=== PATIENT | male | born 1965 | race African-American/Black ===

== ENCOUNTER 2016-06-09 14:23 | Inpatient (IN) | payer MEDICARE, MEDICAID ==
[~2016-06-09] VITALS: Ht 165.1 cm; Wt 111.3 kg
[~2016-06-09 14:23] MED LIST: ALBUTEROL2 PUFFS/17 IN; AMOXIL500 M1 PO; ASPIRIN 81MG TA81 MG PO; BACTRIM DS 8001 TA1 PO; BACTROBAN2% TP; CARVEDILOL 25MG25 MG PO; CIPRO 500MG TA500 MG PO; CIPROFLOXACIN750 MG PO; COMBIVENT INH14.7 GM IN; DIABETA5 MG PO; DOXYCYCLINE HY100 M4 PO; FENOFIBRATE MI134 MG PO; FLEXERIL10 M1 PO; FLEXERIL10 MG PO; FLOVENT 11110 MCG/PU IH; GABAPENTIN 600600 MG PO; HUMALOG MIX 75/10 ML SC; HYDROCODONE BIT1 T39 PO; IPRATROPIUM BROM3 M1 IN; KEFLEX 500MG.500 MG PO; KEFLEX500 M1 PO; KLOR-CON M2020 MEQ PO; LASIX 80MG. TAB80 MG PO; LIPITOR80 MG PO; LISINOPRIL10 MG PO; LORAZEPAM0.5 MG/TAB PO; LORTAB 5/5001 TAB PO; MEDROL 4MG. DOSE4 MG PO; METOPROLOL50 MG PO; MINOCYCLINE 10100 MG PO; MIRALAX(PO17 GM/1 PA PO; NICODERM C21 MG/24 H TD; NICOTINE PATCH;21 MG TD; NORCO 325 MG-51 TAB PO; NORFLEX100 MG PO; NOVOLIN R100 U/ML SC; PLAVIX 75MG TAB75 MG PO; PRAVACHOL40 MG PO; PREDNICOT10 MG PO; PREDNISONE 5MG.5 MG PO; ULTRAM50 MG PO
[2016-06-09 15:48] VITALS: BP 111/83
[2016-06-09] MEDS ORDERED: AMLODIPINE10 M2 PO (16:12)
[2016-06-09] MEDS ORDERED: ASPIRIN81 M3 PO (16:13)
[2016-06-09] MEDS ORDERED: K-DUR 2020 MEQ PO (16:14)
[2016-06-09 19:52] VITALS: BP 129/72
[2016-06-09 20:25] VITALS: BP 129/72
[2016-06-10 03:51] VITALS: BP 101/62
[2016-06-10 06:26] LABS: HEMOGLOBIN 12.8 g/dL (14.1-18.0); LYMPH # 2.7 K/mm3 (0.7-4.5); LYMPH % 50.7 % (10-50)
--- NOTE | 2016-06-10 07:19 | PHARMACY CLINIC NOTE ---
Patient Demographics Patient Demographics Admission date: 06/09/16 Date: 06/10/16 Time: 07 Allergies Coded Allergies: No Known Allergies (06/08/16) HEIGHT- FT: 5 IN: 5.00 K.272 VTE General Information Labs: Laboratory Tests 06/10 0605 Hematology Hgb (14.1 - 18.0 g/dL) 12.8 L Hct (42.0 - 52.0 %) 38.8 L Plt Count (142 - 424 K/mm3) 205 Disclaimer The following section includes nursing documentation that has been pulled in for pharmacy review. Patient's VTE score: 2 Patient's VTE Risk: VERY LOW RISK Clinical trial participant? No VTE prophylaxis NQF [id number] VTE prophylaxis ordered? Yes Type of prophylaxis/treatment: KARLA at 0719
--- NOTE | 2016-06-10 07:19 | PHARMACY CLINIC NOTE ---
Patient Demographics Patient Demographics Admission date: 06/09/16 Date: 06/10/16 Time: 07 Allergies Coded Allergies: No Known Allergies (06/08/16) HEIGHT- FT: 5 IN: 5.00 K.272 VTE General Information Labs: Laboratory Tests 06/10 0605 Hematology Hgb (14.1 - 18.0 g/dL) 12.8 L Hct (42.0 - 52.0 %) 38.8 L Plt Count (142 - 424 K/mm3) 205 Disclaimer The following section includes nursing documentation that has been pulled in for pharmacy review. Patient's VTE score: 2 Patient's VTE Risk: VERY LOW RISK Clinical trial participant? No VTE prophylaxis NQF [id number] VTE prophylaxis ordered? Yes Type of prophylaxis/treatment: KARLA at 0719
[2016-06-10 07:46] VITALS: BP 133/83
--- NOTE | 2016-06-10 08:33 | ACUTE CARE PROGRESS NOTE (QUA) ---
Progress Notes Subjective Date 06/10/16 Time 0829 Note doing ok Patient/family reports: feeling better Nursing reports: no complaints Objective Findings Last VS-Temp:98.5 B/P:133/83 Pulse:63 Resp:20 SaO2:95 ROOM AIR Last weight lbs:245 oz:5 K.272 Method:Bed Scales Exam General appearance: alert Eyes: PERRLA ENT: dry mucous membranes Neck: no JVD Cardiovascular: regular rate & rhythm Respiratory: no respiratory distress ABD: soft Genitourinary: no hematuria Extremities: changes rt foor 4th toe Musculoskeletal: equal muscle strength Skin: infection rt foot Neuro: alert, dec sensation rt lower ext Reviewed: allergies, medications, vital signs, lab results Assessment/Plan Problem List 1. Cellulitis and abscess of foot 2. Chronic pain Status: Chronic 3. Tobacco use Status: Chronic 4. Diabetes mellitus Status: Chronic 5. Renal insufficiency Status: Chronic 6. Acute osteomyelitis of toe Status: Acute Patient condition Stable Plan: continue current care This inpt stay is expected to cross 2 MNs from start of care Yes Comments: awaiting consult on iv abx as he failed op treatment at 0895
[2016-06-10 08:52] VITALS: BP 133/83
[2016-06-10 09:01] LABS: NEUTROPHILS 33 % (42-76)
--- NOTE | 2016-06-10 10:48 | CONSULT NOTE ---
Pharmacokinetic Consult Date of consult: 06/10/16 Time of consult: 1045 Referring provider: DR. SHANKAR Reason for consult: VANCOMYCIN DOSING Allergies: Coded Allergies: No Known Allergies (06/08/16) Home Medications: Active Scripts Orphenadrine Citrate (Norflex) 100 MG PO BIDP PRN pain #20 TER Prov: 07/31/14 MUPIROCIN 2% (Bactroban Oint) 0 GM TP BID #1 TUBE Prov: 12/30/15 CEPHALEXIN (Keflex 500MG Capsule) 500 MG PO Q8H #30 CAP Prov: 06/08/16 Minocycline Hcl (Minocycline 100MG. Capsule) 100 MG PO BID #20 CAP Prov: 06/08/16 HYDROCODONE/ACETAMINOPHEN (Dilliner 5-325 Tablet) 1 TAB PO Q6HP PRN pain #7 TAB Prov: 06/08/16 POLYETHYLENE GLYCOL (Miralax) 17 GM PO DAILY PRN constipation #20 MAHESH Prov: 11/19/15 Lorazepam (Lorazepam 0.5MG) 0.5 MG PO BIDP PRN ANXIETY #60 TAB Ref 2 Prov: 03/24/13 Atorvastatin Calcium (Atorvastatin) 80 MG PO QHS #30 TABLET Ref 2 Prov: 03/24/13 Lisinopril 10 MG PO DAILY #30 TAB Ref 2 Prov: 03/24/13 Gabapentin (Gabapentin 600MG) 600 MG PO TID #90 30 Days Prov: 03/24/13 Furosemide (Lasix 80MG) 80 MG PO BIDP #60 Prov: 03/24/13 Carvedilol (Carvedilol 25MG) 25 MG PO BID #60 TAB Ref 2 Prov: 03/24/13 ALBUTEROL-IPRATROPIUM (Iprat-Albut 0.5-3(2.5) MG/3 Ml) 3 ML IN Q6H6 #120 ML Ref 2 Prov: 03/24/13 FLUTICASONE PROP (Flovent 110) 1 GM IH Q12H6 #1 INH Ref 2 Prov: 03/24/13 Reported Medications Amlodipine Besylate (Amlodipine) 10 MG PO DAILY Aspirin (Aspirin EC) 81 MG PO DAILY Potassium Chloride (K-Dur) 20 MEQ PO DAILY Insulin Aspart, Recombinant (Novolog VIAL) 44 UNITS SC BID CLOPIDOGREL BISULFATE (PLAVIX) 75 MG PO DAILY FENOFIBRATE (Fenofibrate) 134 MG PO DAILY Height (feet): 5 Height (inches): 5.00 Medical History: CAD? Yes Angina: Yes CT: Yes Hypertension? Yes Hyperlipidemia? Yes CHF? Yes DVT? No PE? No COPD? Yes Asthma? Yes Anemia? No GERD? No Gastric ulcers? No GI Bleed? No Hernia? No Thyroid Problems? No Hypothyroidism? No CVA? No Seizures? No Diabetes? Yes Insulin Dependent: Yes Insulin Pump: No Home FSBS? Yes Renal Insuffiency? No UTI? No Stones? No BPH? No GB Disease: Yes Nephritic Syndrome? No Asplenia? No Hepatitis? No Sickle Cell Disease? No Arthritis? Yes Migraines? No Cataracts? No Glaucoma? No MRSA? No HIV? No TB? No Anxiety? No Depression? No Cancer? No More? No Labs: Laboratory Tests 06/10/16 0608: POC Glucose 163 H 06/10/16 0605: WBC 5.4, RBC 4.12 L, Hgb 12.8 L, Hct 38.8 L, MCV 94.2, RDW 14.8, Plt Count 205, MPV 8.0, Gran % 39.8, Gran # 2.2, Total Counted 100, Lymphocytes % 50.7 H, Monocytes % 5.2, Eosinophils % 3.8, Basophils % 0.5, Neutrophils 33 L, Band Neutrophils 1, Lymphocytes (Manual) 58 H, Lymphocytes # 2.7, Monocytes (Manual) 5, Monocytes # 0.3, Eosinophils # 0.2, Eosinophils # (Manual) 3, Basophils # 0.0 , Platelet Estimate NORMAL, PUBS MCHC 33.0, MCH 31.1 06/09/162022: POC Glucose 193 H 06/09/16 1739: POC Glucose 139 H 06/09/16 1700: Sodium 139, Potassium 3.7, Chloride 105, Carbon Dioxide 29, BUN 22 H, Creatinine 1.4 H, Estimated Creat Clear 99, Estimated GFR (MDRD) 54, Glucose 113 H, Calcium 9.1, Total Bilirubin 0.3, AST 16, ALT 31, Alkaline Phosphatase 62, Total Protein 7.0, Albumin 3.5, Globulin 3.5 H, Albumin/Globulin Ratio 1.0 L Problem List: 1. Diabetic foot ulcer associated with diabetes mellitus due to underlying condition 2. Cellulitis and abscess of foot Plan: BASED ON PATIENT FACTORS, RECOMMEND PATIENT CONTINUE WITH VANCOMYCIN 2 GM Q18H AT THIS TIME. PHARMACY WILL FOLLOW DAILY AND ADJUST APPROPRIATE. JOSE L DIETZ, PHARMD at [phone]
[2016-06-10] MEDS ORDERED: FUROSEMIDE80 MG PO (11:30)
[2016-06-10] MEDS ORDERED: NEURONTIN800 MG PO (11:31)
[2016-06-10] MEDS ORDERED: NORCO 325 MG-51 TAB PO (11:33)
[2016-06-10] MEDS ORDERED: IPRATROPIUM BROM3 M1 IH (11:48)
[2016-06-10] MEDS ORDERED: INCRUSE EL62.5 MCG/A IH (11:51)
[2016-06-10] MEDS ORDERED: BREO ELLIPTA 21 EACH IH (11:51)
--- NOTE | 2016-06-10 12:11 | CONSULT NOTE ---
Consultation findings: Referring physician: Dr. Albright Date of examination: 06/10/16 Time of examination: 1100 Exam findings: Patient is a pleasant 50-year-old -Domin[place] male admitted yesterday for suspected osteomyelitis of his LEFT fourth toe. Prior to that he was seen in the ER with a few days history of pain and discoloration of his LEFT fourth toe. He has history of multiple medical problems including diabetes mellitus, peripheral arterial disease, peripheral neuropathy, coronary artery disease, hypertension, chronic obstructive pulmonary disease, congestive heart failure, history of multiple toe amputations of his LEFT foot for osteomyelitis. He had LEFT third toe amputation in July 2013, LEFT second toe amputation in February 2014 and LEFT big toe amputation in April 2015. He says he has been having aching pain in his LEFT fourth toe for the last 3 or 4 days. He also reports some discoloration of the toe. Also he is a chronic smoker and smokes 1 pack of cigarettes a day. There is no history of any fever, chills or rigors. He feels well within himself. His appetite is normal. There is no history of any discharge or ulceration. Examination: Reviewed the hospital notes, labs, vitals, medication and discussed with the nursing staff. General appearance: alert, in no acute distress ENT: dry mucous membranes Neck: no JVD Cardiovascular: regular rate & rhythm Respiratory: no respiratory distress ABD: soft, nontender Neuro: alert, decreased sensation over both feet On examination of the LEFT foot, the first, second and third toes are absent surgically. There is increased pigmentation over the fourth toe and also over the dorsum of the forefoot. There is no erythema, ulceration or discharge. He has good range of motion at ankle, subtalar joint in the toes.~He is tender over the forefoot especially over the distal third, fourth and fifth metatarsals; there is no tenderness over the first metatarsal. Nonpalpable pulses both feet with severe ischemic changes noted to the LEFT lower extremity; absent capillary refill the LEFT foot. There is decreased sensation over both feet and his protective sensation is completely absent to the LEFT foot. Diagnostic Imaging: I reviewed the x-rays of his LEFT foot along with the radiologist's report. The x-rays show features suggestive of osteomyelitis involving the second toe phalanges as well as chronic changes involving the multiple metatarsal heads. No soft tissue swelling noted. Impression: Chronic osteomyelitis LEFT foot Severe peripheral vascular disease LEFT foot Uncontrolled diabetes with neuropathy Recommendations: I reviewed the clinical and x-ray findings with the patient. I discussed the diagnosis, natural history and management options in detail including both nonsurgical and surgical. Given the clinical and x-ray findings, I suspect there is involvement of multiple metatarsals with chronic osteomyelitis. He has no systemic symptoms and is otherwise well. Therefore, I feel an MRI scan of his LEFT foot would help in further evaluation before considering any surgical options. Also the patient is very keen to avoid any surgical intervention at this stage and wants to explore the possibility of avoiding further amputation. I have told him that there is a limited possibility of this with suppressive antibiotics and he wants to try that. Therefore, I would recommend continuation of oral antibiotics and he can be discharged home if medically appropriate. I will see him for follow-up in my office in 1 week and arrange the MRI scan of his LEFT foot. I have discussed at length about smoking and strongly advised him to stop smoking completely. All his questions were answered and he verbalized a good understanding. Thank you for the opportunity to participate in the care of this very pleasant gentleman. at [phone]
--- NOTE | 2016-06-10 14:05 | DISCHARGE SUMMARY STANDARD ---
Demographics Admit date: 06/09/16 Discharge date: 06/10/16 History of present illness History of present illness pt was admitted after seen in office as he had attempted op rx with abx but inc sx and felt pt needed iv abx and pain meds with surg consult and possible amputation as pt has had prev amputation and has iddm and pvd - Hospital Course Hospital Course: pt was admitted and rx with iv abx and sliding scale with pain meds also surg consult - it was felt that surg would not be required at this time and will be rx as op and followed closely Discharge diagnoses Problem List 1. Cellulitis and abscess of foot 2. Chronic pain Status Chronic 3. Tobacco use Status Chronic 4. Diabetes mellitus Status Chronic 5. Renal insufficiency Status Chronic 6. Acute osteomyelitis of toe Status Acute Medications Medications: Discharge meds are as noted. Comment: will see in office this week Follow up Follow up in office in: 3 DAYS with: Grazyna Mayer at [phone]
[2016-06-10 14:45] VITALS: BP 133/83
== END 2016-06-10 14:45 | disposition home or self-care (01) | DRG 540 ==
LOC: 2ND 14:23
PROVIDERS: Emergency Medicine
DX: M86.172 Other acute osteomyelitis, left ankle and foot (principal); L03.116 Cellulitis of left lower limb; I50.9 Heart failure, unspecified; E11.9 Type 2 diabetes mellitus without complications; L03.032 Cellulitis of left toe; I10 Essential (primary) hypertension; Z72.0 Tobacco use; I25.10 Atherosclerotic heart disease of native coronary artery without angina pectoris; G89.29 Other chronic pain
CPT/HCPCS: J3370

== ENCOUNTER → 2016-11-19 | Outpatient (CLI) | payer MEDICARE, MEDICAID ==
[~2016-11-19] MED LIST changes: +AMLODIPINE10 M2 PO; +ASPIRIN81 M3 PO; +BREO ELLIPTA 21 EACH IH; +FUROSEMIDE80 MG PO; +INCRUSE EL62.5 MCG/A IH; +IPRATROPIUM BROM3 M1 IH; +K-DUR 2020 MEQ PO; +Mobic7.5 MG PO; +NEURONTIN800 MG PO
[2016-11-19 10:57] LABS: LYMPH # 3.1 K/mm3 (0.7-4.5); LYMPH % 39.8 % (10-50)
[2016-11-19 13:29] LABS: BUN 34 mg/dL (7-18)
[2016-11-19 13:34] LABS: GFR (ESTIMATED) 35 ML/MIN (>60)
== END ==
LOC: LAB 10:43
PROVIDERS: Emergency Medicine
DX: E11.9 Type 2 diabetes mellitus without complications (principal); I10 Essential (primary) hypertension

== ENCOUNTER → 2016-12-26 | Outpatient (CLI) | payer MEDICARE, MEDICAID ==
[2016-12-26 16:20] LABS: URINE BILIRUBIN - DIPSTICK NEGATIVE (NEG); URINE BLOOD NEGATIVE (NEG)
[2016-12-26 16:29] LABS: LYMPH # 2.6 K/mm3 (0.7-4.5); LYMPH % 41.9 % (10-50)
[2016-12-26 17:24] LABS: HEMOGLOBIN 12.5 g/dL (14.1-18.0)
[2016-12-27 10:35] LABS: BUN 21 mg/dL (7-18)
[2016-12-27 10:39] LABS: GFR (ESTIMATED) 46 ML/MIN (>60)
== END ==
LOC: LAB 15:09
PROVIDERS: Internal Medicine Nephrology
DX: N18.3 Chronic kidney disease, stage 3 (moderate) (principal)

== ENCOUNTER → 2017-02-12 | Outpatient (CLI) | payer MEDICARE, MEDICAID ==
--- NOTE | 2017-02-12 15:21 | CARDIOVASCULAR REPORT ---
"Cerebrovascular Exam Indications: 780.4 Dizziness and giddiness. 435.9 Unspecified transient cerebral ischemia. IMPRESSIONS 1. The bilateral vertebral arteries are patent with normal antegrade flow. 2. Study suggests less than 20% stenosis involving the right internal carotid artery and the left internal carotid artery. No change from the study of 05-Jun-2015. History: Risk factors: Hypertension. Carotid duplex study. Complete study and Doppler flow study including spectral analysis, color and bates scale imaging. Height: Height: 165.1cm. Height: 65in. Weight: Weight: 113.4kg. Weight: 249.5lb. Body mass index: BMI: 41.6kg/m^2. Body surface area: BSA: 2.34m^2. Location: Vascular laboratory. Patient status: Outpatient. Tables: Arterial flow: + +--------+--------+ |Location |V sys |V ed | + +--------+--------+ |Right CCA - proximal|56.6cm/s|14.1cm/s| + +--------+--------+ |Right CCA - distal |55.8cm/s|13.4cm/s| + +--------+--------+ |Right ECA |85.6cm/s|--------| + +--------+--------+ |Right ICA - proximal|50.3cm/s|13.4cm/s| + +--------+--------+ |Right ICA - mid |47.1cm/s|17.3cm/s| + +--------+--------+ |Right ICA - distal |57.4cm/s|22cm/s | + +--------+--------+ |Right vertebral |38.5cm/s|--------| + +--------+--------+ |Left CCA - proximal |103cm/s |22.8cm/s| + +--------+--------+ |Left CCA - distal |62.1cm/s|15.7cm/s| + +--------+--------+ |Left ECA |66cm/s |--------| + +--------+--------+ |Left ICA - proximal |52.2cm/s|21.4cm/s| + +--------+--------+ |Left ICA - mid |72.3cm/s|27.7cm/s| + +--------+--------+ |Left ICA - distal |71cm/s |28.9cm/s| + +--------+--------+ |Left vertebral |42.1cm/s|--------| + +--------+--------+ Velocity ratios: + + + + + + | |Right, V sys|Right, V ed|Left, V sys|Left, V ed| + + + + + + |Max ICA/dist CCA|1.03 |1.64 |1.16 |1.84 | + + + + + + (Report amended ) Electronically signed by: Hermes Tena [id number]"
--- NOTE | 2017-02-13 08:14 | RADIOLOGY REPORT PS360 ---
MRI-BRAIN W/O HISTORY: Dizziness, tremor, slurred speech DIZZINESS, TREMOR ORDERING PHYSICIAN: NIKKI PAULINO PATIENT AGE: 51 years COMPARISON: CT scan of 05/27/2015 TECHNIQUE: Standard multiplanar multiecho sequences are performed without contrast. FINDINGS: No midline shift, mass effect, intracranial hemorrhage, or hydrocephalus. No evidence of acute infarction or any other abnormal areas of restricted diffusion. There are scattered periventricular and subcortical T2 white matter hyperintensities as well as T2 white matter hyperintensities in the sobeida and basal ganglia consistent with ischemic gliotic change from microvascular disease. Encephalomalacic changes present in the right parietal lobe consistent with an old area of infarction. The cerebellopontine angle, cerebellum, and brainstem have an unremarkable appearance. No obvious pituitary mass. No sinus air-fluid level or mastoid effusion. Images of the upper cervical cord suggest bulging disc with canal stenosis at C3-C4 and C4-C5 which may be better evaluated with MRI of the cervical spine if clinically warranted. IMPRESSION: 1. No acute intracranial findings. 2. 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 3. Bulging disc with suggestion of canal stenosis at C3-C4 and C4-C5 which may be better evaluated with cervical spine MRI if clinically warranted
== END ==
LOC: RAD 13:00
DX: R25.1 Tremor, unspecified (principal); R42 Dizziness and giddiness; E88.9 Metabolic disorder, unspecified; M54.5 Low back pain; G89.29 Other chronic pain; R47.9 Unspecified speech disturbances; E10.9 Type 1 diabetes mellitus without complications

== ENCOUNTER → 2017-02-25 | Outpatient (CLI) | payer MEDICARE, MEDICAID ==
[2017-02-25 20:11] LABS: AMPHETAMINES/METAMPHETAMINES NEGATIVE ng/mL (<1000)
== END ==
LOC: LAB 16:19
PROVIDERS: Emergency Medicine
DX: Z79.899 Other long term (current) drug therapy (principal)